=== PATIENT | female | born 1950 | race Caucasian/White ===

== ENCOUNTER 2021-10-30 08:39 | Emergency (ER) | payer MEDICARE, SELFPAY ==
[2021-10-30 08:46] VITALS: BP 149/96; PULSE 85; RESP 18; TEMP 36.6; O2SAT 96; BMI 24.7
--- NOTE | 2021-10-30 08:52 | W.ED.DENTAL ---
HPI - Dental/Oral General: Chief complaint: Dental/Oral Stated complaint: Oral infection Time Seen by Provider: 10/30/21 08:41 Source: patient Mode of arrival: ambulatory Limitations: no limitations History of Present Illness: Patient is a nice 71-year-old female presents to ED today along with her for concerns of a left upper possible dental infection. Patient states she had a tooth that once had a cap on it but it has since fallen off. She states over the past few days she has noticed some pain to the tooth and yesterday began noticing some swelling to the left side of her face. Patient is not having any trouble eating, drinking, controlling secretions. No headache. No fevers. MD Complaint: tooth pain Teeth map: 1. fractured/decayed tooth Onset (ago): day(s) Duration: constant Severity: mild Relieving factors: nothing Context: history of dental caries Associated symptoms: Reports no associated symptoms; Denies ear or mastoid pain or fever(s) Review of Systems Const: Denies: fever(s), chills, body aches, fatigue or malaise Eyes: Denies: change in vision, blurry vision, photophobia, floaters or seeing flashes ENMT: Reports: dental pain; Denies: bleeding gums, dry mouth, ear or mastoid pain, nasal discharge, nasal congestion, post nasal drip or sinus pain Card: Denies: chest pain Resp: Denies: dyspnea GI: Denies: nausea or vomiting Musc: Denies: neck pain Skin/Breast: Denies: rash Neuro: Denies: headache(s) Physical Exam Const: COMMON NORMALS: no acute distress, average body habitus, patient oriented x3, no limitations, healthy appearing, alert and well nourished GENERAL APPEARANCE: cooperative ORIENTATION/CONSCIOUSNESS: Yes awake, Yes oriented to person, Yes oriented to place and Yes oriented to time HENMT: COMMON NORMALS: normocephalic, atraumatic and Normal external nose present HEAD & SCALP: normal to inspection, normocephalic and atraumatic FACE & SINUS: other (possible some very mild maxillary swelling; no cellulitis ) NOSE: Normal external nose present MOUTH: Normal oral and palatal mucosa present, lip normal and tongue normal TEETH & GINGIVA: Yes fair dentition and Yes other (floor of mouth is soft/non-elevated) TEETH & GINGIVA IMAGES: 1. fractured tooth; decay; some gingival swelling/inflammation without obvious fluctuance or abscess THROAT: posterior oropharynx normal, tonsils normal and uvula midline Eye: GENERAL EYE: appearance normal, both eyes and all related structures Neck/C-Spine: COMMON NORMALS: full ROM and no lymphadenopathy GENERAL: Yes normal visual inspection, No anterior neck swelling and No submandibular swelling Resp: COMMON NORMALS: normal respiratory effort Cardio: COMMON NORMALS: regular rate and regular rhythm RATE: regular rate RHYTHM: regular rhythm Neuro: COMMON NORMALS: patient oriented x3 SENSORIUM/ORIENTATION: Yes alert, Yes oriented to person, Yes oriented to place and Yes oriented to time Course Vital Signs: Vital signs: Vital Signs Temperature 97.9 F 10/30/21 08:46 Pulse Rate 85 10/30/21 08:46 Respiratory Rate 18 10/30/21 08:46 Blood Pressure 149/96 10/30/21 08:46 Pulse Oximetry 96 10/30/21 08:46 MDM - Dental/Oral Medical Decision Making Will place on antibiotics and have patient follow-up with a dentist if as soon as possible. Strict return precautions verbally discussed with patient and . Discharge Plan Discharge Patient Disposition: Home Clinical Impression: Dental infection Condition: Stable Prescriptions: New penicillin V potassium 500 mg tablet 500 mg PO Q8H 7 Days Qty: 21 0RF Discharge Orders: Discharge ED (Routine); Ordered 10/30/21 Ordered By: Tierra Pemberton Patient Instructions: Dental Abscess (ED), Toothache (ED) Coding Level of Care Code ED Superintendent Overhead Distribution for Marlen Wallace
== END 2021-10-30 09:09 | disposition home or self-care (01) ==
PROVIDERS: Emergency Provider Physician Assistant
DX: K04.7 Periapical abscess without sinus (principal)
CPT/HCPCS: 99283

== ENCOUNTER 2022-06-16 20:25 | Emergency (ER) | payer MEDICARE, SELFPAY ==
--- NOTE | 2022-06-16 20:26 | XRR_ITS ---
PROCEDURE INFORMATION: Exam: XR Chest Exam date and time: 06/16/2022 8:40 PM Age: 71 years old Clinical indication: Sternal or substernal pain; Patient HX: HX of tb; Additional info: Cp TECHNIQUE: Imaging protocol: Radiologic exam of the chest. Views: 1 view. COMPARISON: No relevant prior studies available. FINDINGS: Lungs: Unremarkable. No consolidation. Pleural spaces: Unremarkable. No pleural effusion. No pneumothorax. Heart/Mediastinum: Unremarkable. No cardiomegaly. Bones/joints: Unremarkable. XR/XR chest 1V portable [id number] IMPRESSION: No acute findings.
[2022-06-16 20:34] VITALS: BP 176/89; PULSE 81; RESP 18; TEMP 36.5; O2SAT 95; BMI 23.3
--- NOTE | 2022-06-16 20:42 | ECG_ITS ---
[facility] Test Date: 2022-06-16 Pat Name: Adriana Sinclair Department: Room: Gender: Female Station Usher: : 1950 Requested By: Ben Fernández Order Number: [id number] Rupesh MD: Edward Ruby M.D. Measurements Intervals [place] Rate: 76 P: 35 LA: 121 QRS: 6 QRSD: 84 T: -4 QT: 344 QTc: 388 Interpretive Statements SINUS RHYTHM No previous ECG available for comparison Electronically Signed On 06-17-2022 7:11:39 CAP INSPECTOR by Edward Ruby M.D. [id number]
--- NOTE | 2022-06-16 20:48 | W.ED.CHESTPA ---
HPI - Chest Pain General: Chief Complaint: Chest Pain Stated Complaint: High BP,flushed, heart racing Time Seen by Provider: 06/16/22 20:27 Source: patient Mode of arrival: ambulatory Limitations: no limitations History of Present Illness: 71-year-old female states that over the last 2 days her blood pressures been running high she checked at [facility] and had a friend that was in the 190s its also in the 190s here. She denies any headache she denies any pain states that last night at 3 AM she felt like her heart was racing at times but denies any chest pain she has no shortness of breath no other complaints at this time no known history of high blood pressure. Associated symptoms: Reports palpitations; Deny abdominal pain, dyspnea, fever(s), nausea or vomiting Review of Systems Const: Denies: fever(s), chills, body aches or change in appetite Eyes: Denies: blurry vision or eye discomfort ENMT: Denies: throat pain or dental pain Card: Reports: palpitations Resp: Denies: dyspnea GI: Denies: abdominal pain, nausea, vomiting or diarrhea : Denies: dysuria Musc: Denies: neck pain or back pain Skin/Breast: Denies: rash Neuro: Denies: headache(s) Psych: Denies: depression Facundo/Lymph: Denies: easy bruising All/Imm: Denies: urticaria PFSH ED PFSH: Medical History (Updated 06/16/22 @ 21:53 by Ben Fernández MD) No pertinent past medical history Social History Substance/Drug Use: never Physical Exam Const: COMMON NORMALS: no acute distress, patient oriented x3 and healthy appearing HENMT: COMMON NORMALS: normocephalic and atraumatic HEAD & SCALP: normocephalic and atraumatic Eye: COMMON NORMALS: Equal, round and reactive pupils present and EOMs intact bilaterally PUPIL: Yes Equal, round and reactive pupils present Neck/C-Spine: COMMON NORMALS: full ROM and supple Chest: COMMONS NORMALS: normal inspection of the chest and normal palpation of entire chest wall Resp: COMMON NORMALS: normal respiratory effort, No retractions, No use of accessory muscles and clear to auscultation bilaterally AUSCULTATION: clear to auscultation bilaterally Cardio: COMMON NORMALS: regular rate, regular rhythm and No murmurs present (Cardio) RATE: regular rate RHYTHM: regular rhythm GI: COMMON NORMALS: Normal to inspection, nondistended, normoactive bowel sounds present, Soft to palpation, non-tender and no masses PALPATION: Yes Soft to palpation Extremity: COMMON NORMALS: normal to inspection and full ROM Neuro: COMMON NORMALS: patient oriented x3, moves all extremities and no focal motor deficits Psych: COMMON NORMALS: mental status grossly normal, Normal thought process present and cooperative THOUGHT PROCESS: Normal thought process present Skin: COMMON NORMALS: no rashes or lesions noted and no wounds GENERAL SKIN EXAM: no rashes or lesions noted Course Vital Signs: Vital signs: Vital Signs Temperature 97.7 F 06/16/22 20:34 Pulse Rate 84 06/16/22 20:59 Respiratory Rate 16 06/16/22 20:59 Blood Pressure 176/90 06/16/22 20:59 Pulse Oximetry 97 06/16/22 20:59 Oxygen Delivery Me thod 06/16/22 20:59 MDM - Chest Pain Medical Decision Making Patient presents here with high blood pressure pressure is improved here she is asymptomatic her blood work is normal no signs of acute coronary syndrome we will start her on Norvasc and get her follow-up with the PCP she is return if worsening she understands agrees to plan. Lab Data 06/16/22 21:09 06/16/22 21:09 Radiology Impressions Chest X-Ray 06/16/22 20:26 IMPRESSION: No acute findings. Laboratory Results WBC 6.4 10^3/uL (4.0-10.0) 06/16/22 21:09 RBC 4.18 10^6/uL (4.1-5.3) 06/16/22 21:09 Hgb 12.6 g/dL (11.5-15.3) 06/16/22 21:09 Hct 38.3 % (37.0-47.0) 06/16/22 21: MCV 91.6 fl (81-99) 06/16/22 21:09 MCH 30.1 pg (28.0-34.0) 06/16/22 21: MCHC 32.9 g/dL (30.0-36.0) 06/16/22 21:09 RDW 12.6 % (12.1-15.1) 06/16/22 21:09 Plt Count 198 10^3/cmm (130-400) 06/16/22 21:09 MPV 9.5 fL (7.4-10.4) 06/16/22 21:09 Neut % (Auto) 57.1 % 06/16/22 21:09 Lymph % (Auto) 34.2 % 06/16/22 21:09 [place] % (Auto) 5.9 % 06/16/22 21:09 Eos % (Auto) 2.0 % 06/16/22 21:09 Baso % (Auto) 0.5 % 06/16/22 21:09 Neut # (Auto) 3.65 10^3/uL (1.8-7.7) 06/16/22 21:09 Lymph # (Auto) 2.2 10^3/uL (0.8-4.8) 06/16/22 21:09 [place] # (Auto) 0.4 10^3/uL (0.2-0.9) 06/16/22 21:09 Eos # (Auto) 0.1 10^3/uL (0.0-0.8) 06/16/22 21:09 Baso # (Auto) 0.0 10^3/uL (0.0-0.1) 06/16/22 21:09 Nucleated RBC % (auto) 0 % 06/16/22 21:09 Nucleated RBCs # 0.0 /100WBC 06/16/22 21:09 Sodium 133 mmol/L (136-145) L 06/16/22 21:09 Potassium 3.7 mmol/L (3.5-5.1) 06/16/22 21:09 Chloride 97 mmol/L (98-107) L 06/16/22 21:09 Carbon Dioxide 27 mmol/L (22-29) 06/16/22 21:09 Anion Gap 12.7 (5-19) 06/16/22 21:09 BUN 14 mg/dL (8-23) 06/16/22 21:09 Creatinine 0.5 mg/dL (0.5-0.9) 06/16/22 21:09 GFR Calculation Not Reportable 06/16/22 21:09 Glucose 85 mg/dL (65-115) 06/16/22 21:09 Calculated Osmolality 276 mOsm/kg (285-295) L 06/16/22 21:09 Calcium 8.7 mg/dL (8.5-10.5) 06/16/22 21:09 Total Bilirubin 0.4 mg/dL (0.15-1.2) 06/16/22 21:09 AST 17 U/L (0-32) 06/16/22 21:09 ALT 12 U/L (0-33) 06/16/22 21:09 Alkaline Phosphatase 68 U/L (35-105) 06/16/22 21:09 Troponin T Baseline 6 ng/L (0-10) 06/16/22 21:09 Total Protein 7.6 g/dL (6.6-8.7) 06/16/22 21:09 Albumin 4.5 g/dL (3.5-5.2) 06/16/22 21:09 Globulin 3.1 g/dL (1.3-4.6) 06/16/22 21:09 EKG Data EKG 1: I personally reviewed and interpreted this EKG as follows: EKG interpretation date: 06/16/22 EKG interpretation time: 20:42 Interpretation: nsr hr [address] or t wave abnormalities qrs 84 qtc 374 Discharge Plan Discharge Patient Disposition: Home Clinical Impression: Hypertension Prescriptions: New amlodipine 5 mg tablet 5 mg PO BID Qty: 60 0RF Discharge Orders: Discharge ED (Routine); Ordered 06/16/22 Ordered By: Ben Fernández Discharge Diet: Advance as tolerated Discharge Activity: Resume usual activity Patient Instructions: Hypertension (ED) Coding Level of Care Code ED Telephone Sterilizer for Chg Fwd Exam Comprehensive
[2022-06-16 20:59] VITALS: BP 176/90; PULSE 84; RESP 16; O2SAT 97
[2022-06-16 21:19] LABS: Basophils % 0.5 %; Eosinophils # 0.1 10^3/uL (0.0-0.8); Hematocrit 38.3 % (37.0-47.0); Hemoglobin 12.6 g/dL (11.5-15.3); Lymphocytes # 2.2 10^3/uL (0.8-4.8); Lymphocytes % 34.2 %; Mean Corpuscular HGB Conc 32.9 g/dL (30.0-36.0); Mean Corpuscular Hemoglobin 30.1 pg (28.0-34.0); Mean Corpuscular Volume 91.6 fl (81-99); Mean Platelet Volume 9.5 fL (7.4-10.4); Monocytes # 0.4 10^3/uL (0.2-0.9); Monocytes % 5.9 %; Neutrophils # 3.65 10^3/uL (1.8-7.7); Neutrophils % 57.1 %; Nucleated Red Blood Cells % 0 %; Platelet Count 198 10^3/cmm (130-400); Red Blood Count 4.18 10^6/uL (4.1-5.3); Red Cell Distribution Width 12.6 % (12.1-15.1); White Blood Count 6.4 10^3/uL (4.0-10.0)
[2022-06-16] MEDS: labetalol 5 mg/mL SDV 20mL 10 MG IVP (21:20)
[2022-06-16 21:42] LABS: Alanine Aminotransferase 12 U/L (0-33); Albumin Level 4.5 g/dL (3.5-5.2); Alkaline Phosphatase 68 U/L (35-105); Anion Gap 12.7 (5-19); Aspartate Amino Transferase 17 U/L (0-32); Blood Urea Nitrogen 14 mg/dL (8-23); Calcium 8.7 mg/dL (8.5-10.5); Carbon Dioxide 27 mmol/L (22-29); Chloride 97 mmol/L (98-107); Creatinine Clr Calc Pharmacy 60.6877; Globulin 3.1 g/dL (1.3-4.6); Glucose 85 mg/dL (65-115); Osmolality Calculated 276 mOsm/kg (285-295); Potassium 3.7 mmol/L (3.5-5.1); Sodium 133 mmol/L (136-145); Total Bilirubin 0.4 mg/dL (0.15-1.2); Total Protein 7.6 g/dL (6.6-8.7)
[2022-06-16 21:43] LABS: Troponin(5th) Baseline 6 ng/L (0-10)
[2022-06-16] MEDS: amlodipine 5 mg Tablet PO (22:09)
[2022-06-16 22:22] VITALS: BP 172/85; PULSE 76; RESP 16; O2SAT 96
--- NOTE | 2022-06-17 14:08 | DCPLANNER ---
manager photography had message to speak with patient about getting established with a primary care physician. manager photography called phone number [phone] unable to speak with patient at this time. manager photography unable to leave a voicemail for patient due to no voicemail box set up.
== END 2022-06-16 22:15 | disposition home or self-care (01) ==
PROVIDERS: Emergency Provider Emergency Medicine
DX: I10 Essential (primary) hypertension (principal)
CPT/HCPCS: 71045; 80053; 84484; 85025; 93005; 96374; 99285; J3490

== ENCOUNTER → 2024-07-27 15:17 | Outpatient (BNVA) | payer MEDICARE, SELFPAY | PROVIDERS: PCP Registered Nurse; Visit Provider Registered Nurse | DX: R00.2 Palpitations (principal) | CPT/HCPCS: 80048; 84443; 85025 ==

== ENCOUNTER → 2024-12-28 08:39 | Outpatient (BNVA) | payer MEDICARE, SELFPAY | PROVIDERS: PCP Registered Nurse; Visit Provider Podiatrist Foot & Ankle Surgery | DX: L60.3 Nail dystrophy (principal); L60.2 Onychogryphosis | CPT/HCPCS: 11750; 99204; J9999 ==

== ENCOUNTER → 2025-01-11 07:51 | Outpatient (BNVA) | payer MEDICARE, SELFPAY | PROVIDERS: PCP Registered Nurse; Visit Provider Podiatrist Foot & Ankle Surgery | DX: L60.2 Onychogryphosis (principal) | CPT/HCPCS: 99213 ==

== ENCOUNTER 2025-05-18 08:23 | Outpatient (CLI) | payer MEDICARE, SELFPAY ==
--- NOTE | 2025-05-18 09:15 | USCV_ITS ---
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: Exam Location: [facility] [place] Indication: cp sob BP: 120 / 70 HR: 81 Rhythm: Sinus Technical Quality: Adequate MEASUREMENTS (Male / Female) Normal Values 2D ECHO LV Diastolic Diameter PLAX 3.9 cm 4.2 - 5.9 / 3.9 - 5.3 cm IVS Diastolic Thickness 1.1 cm 0.6 - 1.0 / 0.6 - 0.9 cm IVS Systolic Thickness 1.3 cm LVPW Diastolic Thickness 1.0 cm 0.6 - 1.0 / 0.6 - 0.9 cm LVPW Systolic Thickness 1.3 cm LVOT Diameter 2.0 cm LV Ejection Fraction 2D Teich 68.4 % LV Ejection Fraction MOD 4C 53.7 % LV Ejection Fraction MOD 2C 70.2 % LV Ejection Fraction 2C AL 71.2 % LA Diameter 3.8 cm RA Systolic Volume 4C AL 33.9 ml RA Systolic Volume 4C MOD 34.7 ml LA Sys Volume AL 57.4 cm cubed LA Sys Volume Index AL 34.7 cm cubed/m squared IVC Diameter 1.7 cm M-MODE LA Ao Ratio MM 1.1 AV Cusp Separation MM 1.5 cm DOPPLER AV Peak Velocity 112.0 cm/s LVOT Peak Velocity 91.0 cm/s AV Area Cont Eq vti 2.4 cm squared AV Area Cont Eq pk 2.6 cm squared MV Peak Velocity 132.0 cm/s MV Area PHT 4.4 cm squared Mitral E to A Ratio 1.1 TV Peak Velocity 233.0 cm/s TR Peak Velocity 278.0 cm/s TR Peak Gradient 30.9 mmHg TV Peak E Velocity 69.0 cm/s PV Peak Velocity 101.0 cm/s FINDINGS Left Ventricle Normal left ventricular size, systolic function and wall thickness, with no regional wall motion abnormalities. Left ventricular ejection fraction is estimated at 55 %. Grade II/IV diastolic dysfunction, moderately elevated filling pressures. Right Ventricle Normal right ventricular size and systolic function. Right Atrium Normal right atrial size. Left Atrium Moderately increased left atrial size. IA Septum Normal appearance of the interatrial septum. Mitral Valve Moderately thickened mitral valve. No mitral valve stenosis. Moderate mitral valve regurgitation. Aortic Valve Moderate aortic valve calcification. No aortic valve stenosis. No aortic valve regurgitation. Tricuspid Valve Normal tricuspid valve structure. No tricuspid valve stenosis or regurgitation. Normal pulmonary pressure. Pulmonic Valve Normal pulmonic valve structure. No pulmonic valve stenosis or regurgitation. Pericardium No pericardial effusion. Aorta Normal diameter of the aortic root and ascending thoracic aorta. IVC Normal IVC diameter. CONCLUSIONS Normal left ventricular size, systolic function and wall thickness, with no regional wall motion abnormalities. Left ventricular ejection fraction is estimated at 55 %. Grade II/IV diastolic dysfunction, moderately elevated filling pressures. Moderately increased left atrial size. Moderately thickened mitral valve. No mitral valve stenosis. Moderate mitral valve regurgitation. There is no pericardial effusion. Right atrial pressure is around 10 mm of mercury. Angelica Márquez MD (Electronically Signed) Final Date: 28 May 2025 23:14 S
== END 2025-05-18 08:24 | disposition home or self-care (01) ==
PROVIDERS: PCP Registered Nurse; Visit Provider Registered Nurse
DX: R01.1 Cardiac murmur, unspecified (principal); R93.1 Abnormal findings on diagnostic imaging of heart and coronary circulation; I51.7 Cardiomegaly; I34.0 Nonrheumatic mitral (valve) insufficiency; I35.8 Other nonrheumatic aortic valve disorders
CPT/HCPCS: 93306